=== PATIENT | female | born 1975 | race Two or more races ===

== ENCOUNTER 2020-09-30 05:50 | Inpatient (IN) | payer OTHER ==
[2020-09-30 09:02] LABS: BASO % 0.6 % (0-2.0); EOS % 1.8 % (0-4.5); HEMATOCRIT 33.6 % (32.4-45.2); HEMOGLOBIN 11.5 GM/dL (10.7-15.3); LYMPH % 23.7 % (8-40); MCH 28.5 pg (25.7-33.7); MCHC 34.1 g/dl (32.0-36.0); MEAN CELL VOLUME 83.5 fl (80-96); MEAN PLT VOLUME 8.6 fl (7.5-11.1); MONO % 7.7 % (3.8-10.2); NEUT % 66.2 % (42.8-82.8); PLATELET COUNT 205 10^3/uL (134-434); RBC 4.02 M/mm3 (3.60-5.2); RDW 14.7 % (11.6-15.6); WHITE BLOOD COUNT 5.9 K/mm3 (4.0-10.0)
[2020-09-30 09:05] LABS: INR 0.87 (0.83-1.09); PROTHROMBIN TIME (PATIENT) 10.7 SEC (9.7-13.0)
[2020-09-30 09:08] LABS: ACTIVATED PTT 27.4 SECONDS (25.2-36.5)
[2020-09-30] MEDS ORDERED: AMPICILLIN SODIUM 2 GM VIAL ONE (09:17)
[2020-09-30 09:18] LABS: BLOOD UREA NITROGEN 8.9 mg/dL (7-18); CALCIUM 8.4 mg/dL (8.5-10.1)
[2020-09-30 09:21] LABS: CREATININE 0.5 mg/dL (0.55-1.3)
[2020-09-30] MEDS ORDERED: OXYTOCIN 20 UNITS in 0.9% NS 20 UNIT/1,000 ML INFUS.BAG IV ONE ×2 (10:32→15:42)
[2020-09-30] MEDS ORDERED: DEXTROSE 5%-LACTATED RINGERS 1,000 ML IV SCH (12:00)
[2020-09-30] MEDS ORDERED: OXYTOCIN 30 UNITS in 0.9% NS 30 UNIT/500 ML INFUS.BAG IVPB SCH (12:00)
[2020-09-30] MEDS ORDERED: AMPICILLIN - 1 GM in SODIUM CHLORIDE 100 ML IVPB SCH (12:00)
[2020-09-30] MEDS ORDERED: OXYTOCIN 30 UNITS in 0.9% NS 30 UNIT/500 ML INFUS.BAG IVPB ONE (12:10)
[2020-09-30] MEDS ORDERED: AMPICILLIN SODIUM 1 GM VIAL ONE (12:38)
[2020-09-30] MEDS ORDERED: AMPICILLIN - 2 GM in SODIUM CHLORIDE 100 ML IVPB ONE (12:39)
[2020-09-30] MEDS: D5W-LR W/ 20 UNITS OXYTOCIN 20 UNIT/1,000 ML INFUS.BAG IV SCH ×2 (12:47→15:45)
[2020-09-30] MEDS ORDERED: BENZOCAINE 20% 57 GM BOTTLE TP PRN (12:58)
[2020-09-30] MEDS ORDERED: IBUPROFEN 600 MG TABLET (FP) PO PRN (12:58)
[2020-09-30] MEDS ORDERED: BENZOCAINE 28 GM HEMORRHOIDAL OINTMENT TP PRN (12:58)
[2020-09-30] MEDS ORDERED: BISACODYL 10 MG SUPP.RECT RC PRN (12:58)
[2020-09-30] MEDS ORDERED: ACETAMINOPHEN 325 MG TABLET (FP) PO PRN (12:58)
[2020-09-30] MEDS ORDERED: WITCH HAZEL 50% (TUCKS) 40 PAD/JAR PAD TP PRN (12:58)
[2020-09-30] MEDS ORDERED: METHYLERGONOVINE MALEATE 0.2 MG/1 ML AMP IM PRN (12:58)
[2020-09-30 14:42] LABS: CORD BASE EXCESS -4.7 mmol/L (0-2); CORD HCO3 20.7 mmHg (20-29); CORD PCO2 39.7 mmHg (30-78); CORD pH 7.336 (7.14-7.44)
[2020-09-30 14:43] LABS: CORD BASE EXCESS -10.7 mmol/L (0-2); CORD PCO2 44.9 mmHg (30-78); CORD pH 7.197 (7.14-7.44)
[2020-09-30 14:57] VITALS: BMI 32.6
[2020-09-30 17:19] LABS: COCAINE, UR NEGATIVE (NEGATIVE); METHADONE, UR NEGATIVE (NEGATIVE); URINE AMPHETAMINES NEGATIVE (NEGATIVE); URINE BARBITURATES NEGATIVE (NEGATIVE); URINE BENZODIAZEPINES NEGATIVE (NEGATIVE)
[2020-09-30 17:20] LABS: OPIATES, URI NEGATIVE (NEGATIVE); PHENCYCLIDINE,URINE NEGATIVE (NEGATIVE)
[2020-09-30] MEDS: FERROUS SO4 325 MG TABLET (FP) PO SCH (21:45)
[2020-10-01 08:22] LABS: BASO % 0.4 % (0-2.0); EOS % 0.5 % (0-4.5); HEMATOCRIT 29.9 % (32.4-45.2); HEMOGLOBIN 10.3 GM/dL (10.7-15.3); LYMPH % 13.9 % (8-40); MCH 28.6 pg (25.7-33.7); MCHC 34.3 g/dl (32.0-36.0); MEAN CELL VOLUME 83.5 fl (80-96); MEAN PLT VOLUME 8.7 fl (7.5-11.1); MONO % 5.7 % (3.8-10.2); NEUT % 79.5 % (42.8-82.8); PLATELET COUNT 172 10^3/uL (134-434); RBC 3.59 M/mm3 (3.60-5.2); RDW 14.7 % (11.6-15.6); WHITE BLOOD COUNT 9.7 K/mm3 (4.0-10.0)
[2020-10-01] MEDS: PRENATAL VITAMINS W/ FOLIC ACID TABLET (FP) PO SCH (09:35)
[2020-10-01] MEDS: FERROUS SO4 325 MG TABLET (FP) PO SCH ×2 (09:35→21:29)
[2020-10-01] MEDS ORDERED: SENNOSIDES/DOCUSATE COMBO (SENNA PLUS) TABLET (UD) PO PRN (22:00)
[2020-10-02 09:31] VITALS: BP 118/69; PULSE 63; TEMP 98.6
[2020-10-02] MEDS: PRENATAL VITAMINS W/ FOLIC ACID TABLET (FP) PO SCH (09:53)
[2020-10-02] MEDS: FERROUS SO4 325 MG TABLET (FP) PO SCH (09:53)
[2020-10-03 09:13] LABS: POC NITRAZINE NEG
== END 2020-10-02 12:00 | disposition home or self-care (01) | DRG 560 ==
LOC: JLDR 05:50 → J3W 16:00
PROVIDERS: ADMIT Internal Medicine; ATTEND Internal Medicine
PROC: 10E0XZZ Delivery of Products of Conception, External Approach (ICD-10-PCS; principal; 2020-09-30)
DX: O42.02 Full-term premature rupture of membranes, onset of labor within 24 hours of rupture (principal); O70.0 First degree perineal laceration during delivery; Z3A.39 39 weeks gestation of pregnancy; Z37.0 Single live birth
CPT/HCPCS: 36415; 36600; 59409; 80048; 80307; 82803; 83986-QW; 85025; 85610; 85730; 86780; 86850; 86900; 86901; C9803; U0003; U0005